=== PATIENT | male | born 1960 | race African-American/Black ===

== ENCOUNTER 2016-05-11 04:25 | Emergency (ER) | payer OTHER ==
[~2016-05-11 04:25] MED LIST: FLEXERIL10 MG PO
--- NOTE | 2016-05-11 04:32 | ED AMS/SEIZURE/WEAK/DIZZY ---
History of Present Illness General Chief Complaint: Dizziness Stated Complaint: WOKE UP DIZZY Source: patient Exam Limitations: no limitations Vital Signs & Intake/Output Vital Signs & Intake/Output Vital Signs Date Time Temp Pulse Resp B/P Pulse O2 O2 Flow FiO2 Ox Delivery Rate 05/11 0436 96.9 71 18 175/67 98 Allergies Coded Allergies: NO KNOWN ALLERGIES (03/19/11) Reconcile Medications CYCLOBENZAPRINE HCL (Flexeril) 10 MG TAB 1 TAB PO TID MUSCLE PAIN Meclizine HCl 25 MG TABLET 1 TAB PO TIDPRN PRN VERTIGO Ondansetron (Zofran Odt) 4 MG TAB.RAPDIS 1 TAB SL TID PRN NAUSEA/VOMITING Triage Nurses Notes Reviewed? yes Onset: Gradual Duration: hour(s):, day(s): Timing: recent history Injury Environment: home Severity: mild, moderate Modifying Factors: Worsens With: movement. Associated Symptoms: vertigo and nausea HPI: 56-year-old gentleman history of diabetes and prior good health presents with vertigo. He states that this morning. When he moved his head he felt dizzy and slightly nauseous. He notes that he had had these symptoms mildly the past 2-3 days. He has no focal weakness, dysarthria, facial droop, change in sensation. He has no chest pain shortness of breath fever chills headache or change in vision. Past History Travel History Traveled to [place] past 21 day No Medical History Any Pertinent Medical History? see below for history Cardiovascular: hypertension, hyperlipidemia Endocrine: diabetes Tetanus Vaccine: 03/18/13 Surgical History Surgical History: none Psychosocial History What is your primary language [place] Family History Hx Contributory? No Review of Systems Review of Systems Constitutional: Reports: no symptoms. EENTM: Reports: no symptoms. Respiratory: Reports: no symptoms. Cardiovascular: Reports: no symptoms. GI: Reports: no symptoms. Genitourinary: Reports: no symptoms. Musculoskeletal: Reports: no symptoms. Skin: Reports: no symptoms. Neurological/Psychological: Reports: no symptoms. Hematologic/Endocrine: Reports: no symptoms. Immunologic/Allergic: Reports: no symptoms. All Other Systems: Reviewed and Negative Physical Exam Physical Exam General Appearance: well developed/nourished, mild distress Head: atraumatic, normal appearance Eyes: Bilateral: normal appearance, PERRL, EOMI. Ears, Nose, Throat: normal pharynx, normal ENT inspection Neck: normal inspection, supple, full range of motion Respiratory: normal breath sounds, chest non-tender, no respiratory distress, quiet respiration, lungs clear Cardiovascular: regular rate/rhythm Gastrointestinal: normal bowel sounds, soft, non-tender, no organomegaly Back: normal inspection, normal range of motion Extremities: normal range of motion Neurologic/Psych: no motor/sensory deficits, awake, alert, oriented x 3 Reflexes: 1+: bicep (R), bicep (L), knee (R), knee (L). Skin: intact, normal color, warm/dry Comments: Deep tendon reflexes are symmetrical in upper and lower extremities. Strength and light touch are intact bilaterally. Core Measures ACS in differential dx? No CVA/TIA Diagnosis: No Severe Sepsis Present: No Septic Shock Present: No Progress Differential Diagnosis: vertigo versus other. Plan of Care: Orders Procedure Date/time Status EKG 05/11 0436 Active Initial ED EKG: normal axis, normal intervals, normal p-waves, normal QRS complex, normal sinus rhythm Departure Departure Disposition: HOME OR SELF CARE Condition: Stable Clinical Impression Primary Impression: Vertigo Referrals: VERITO THAYER MD (PCP/Family) Departure Forms: Customer Survey General Discharge Information Prescriptions: Current Visit Scripts Meclizine HCl 1 TAB PO TIDPRN PRN VERTIGO #30 TAB Ref 1 Ondansetron (Zofran Odt) 1 TAB SL TID PRN NAUSEA/VOMITING #10 TAB Comments 05/11/2016, 543am: At presentation, upon rapid head movement, patient became nauseous and vomited slightly. After zofran and meclizine and 1.25 hours of ED observation time, he is able to move his head rapidly without symptoms. He is feeling better. He is safe for discharge. I encouraged him to continue the meclizine and zofran and to follow up closely if his symptoms return.
[2016-05-11] MEDS ORDERED: ZOFRAN ODT4 M1 SL (04:41)
[2016-05-11] MEDS ORDERED: MECLIZINE HCL25 MG PO (04:41)
[2016-05-11 05:51] VITALS: BP 165/76
== END 2016-05-11 05:51 ==
LOC: ERH 04:25
DX: R42 Dizziness and giddiness (principal); R11.0 Nausea
CPT/HCPCS: 93005; 93010; J3101